=== PATIENT | female | born 1950 | race Caucasian/White ===

== ENCOUNTER 2023-05-07 12:09 | Emergency (ER) | payer OTHER, SELFPAY ==
[2023-05-07 12:12] VITALS: BP 140/69; PULSE 73; RESP 18; TEMP 36.5; O2SAT 99; BMI 26.9
--- NOTE | 2023-05-07 12:22 | DI.RAD.S_ITS ---
PROCEDURE: XR CHEST 1V INDICATIONS: chest pain TECHNIQUE: One view of the chest was acquired. COMPARISON: None. FINDINGS: Surgical changes and devices: None. Lungs and pleura: Lungs are clear. No pleural effusions or pneumothorax. Mediastinum: Mediastinal contours appear normal. Heart size is normal. Bones and chest wall: No suspicious bony lesions. Dextrocurvature of the spine. Overlying soft tissues appear unremarkable. IMPRESSION: No acute cardiopulmonary process. Dictated by: Livan uGtierrez M.D. on 05/07/2023 at 13:08 Approved by: Livan Gutierrez M.D. on 05/07/2023 at 13:08
[2023-05-07 12:32] LABS: Add Manual Diff / Slide Review NO; Basophils Absolute Auto 100 /uL (0-100); Basophils Percent Auto 1.1 % (0-2); Eosinophils Absolute Auto 200 /uL (0-450); Hematocrit 41.4 % (36-46); Hemoglobin 13.8 g/dL (12.0-16.0); Lymphocytes Absolute Auto 1800 /uL (1100-4500); Lymphocytes Percent Auto 32.6 % (25-40); Mean Corpuscular HGB Conc 33.2 % (30-36); Mean Corpuscular Hemoglobin 30.3 PG (26-34); Mean Corpuscular Volume 91.3 fL (80-100); Monocytes Absolute Auto 600 /uL (0-900); Monocytes Percent Auto 10.3 % (3-14); Neutrophils Absolute Auto 2800 /uL (1500-7000); Platelet Count 225 X10^3/uL (150-400); Red Blood Cell Count 4.54 X10^6/uL (4.0-5.2); Red Cell Distribution Width 13.5 % (11.6-14.8); White Blood Cell Count 5.4 X10^3/uL (4.5-11.0)
[2023-05-07 12:40] LABS: Prothrombin Time 11.2 SECONDS (10.1-12.7)
--- NOTE | 2023-05-07 12:40 | ED_ITS ---
HPI - Arrhythmia/Palpitations General Chief Complaint: Arrhythmia/Palpitations Stated Complaint: accelerated heart rate Time Seen by Provider: 05/07/23 12:21 History of Present Illness HPI narrative: 72-year-old female former smoker without chronic medical history presents with a chief complaint of an episode of elevated heart rate last night as high as 150. She states that she has been having issues with episodes of palpitations off and on for least the past year and has had a Holter monitor without any significant findings. She denies any new medications or dietary change. She denies any current symptoms. She is had no fever or chills and denies any nausea or vomiting. She states that she was out for her normal walk last night and noticed that she was feeling palpitations and had heart rate of 150. It resolved not too long afterwards and she is here for evaluation. She denies any trauma or injury, no calf or leg pain or swelling and is asymptomatic as we speak Related Data Allergies Allergy/AdvReac Type Severity Reaction Status Date / Time No Known Drug Allergies Allergy Verified 05/07/23 12:15 Review of Systems Review of Systems Narrative: GENERAL: Denies chills, fatigue, malaise, fever, sweats. HEENT: Denies sinus pain, ear pain, sore throat, difficulty swallowing, dizziness. RESPIRATORY: Denies dyspnea, cough, wheezing, hemoptysis, sputum. CARDIOVASCULAR: See HPI GASTROINTESTINAL: Denies nausea, vomiting, abdominal pain, diarrhea, constipation, melena. : Denies dysuria, frequency, incontinence, hematuria, urinary retention. MUSCULOSKELETAL: denies weakness, joint pain, or bony pain SKIN: Denies rash, skin lesions, or other NEUROLOGIC: Denies weakness, headache, numbness, change in speech, confusion, seizures, incoordination. PSYCHIATRIC: No concerning psychosocial issues. 12 point review of systems is negative except for those stated above Patient History Social History Smoking Status: Former smoker Smoking Status: Former smoker alcohol intake frequency: 0-2 drinks per day Substance Use Type: does not use Exam Narrative Exam Narrative: GENERAL: [72] year old patient appears stated age. Well-developed patient, in mild distress. HEAD: Atraumatic. Normocephalic. EYES: Pupils equal round and reactive. Extraocular motions intact. No scleral icterus. No injection or drainage. ENT: Nose without bleeding, purulent drainage. Throat without erythema, tonsillar hypertrophy or exudate. Airway patent. NECK: Trachea midline. Non tender CARDIOVASCULAR: Regular rate and rhythm without murmurs, gallops, or rubs. RESPIRATORY: Clear to auscultation. Breath sounds equal bilaterally. No wheezes, rales, or rhonchi. GASTROINTESTINAL: Abdomen soft, non-tender, nondistended. EXTREMITIES: No edema or joint tenderness. BACK: Nontender without deformity or crepitance. No flank tenderness. NEURO: AOx3. SKIN: No rash or erythema of visible areas Initial Vital Signs Initial Vital Signs: Vital Signs Temperature 97.7 F 05/07/23 12:12 Pulse Rate 73 05/07/23 12:12 Respiratory Rate 18 05/07/23 12:12 Blood Pressure 140/69 05/07/23 12:12 Pulse Oximetry 99 05/07/23 12:12 Oxygen Delivery Method Room Air 05/07/23 12:12 Course Orders Ordered: ED Orders 05/07/23 12:20 Complete Blood Count AUTO DIFF Stat Comprehensive Metabolic Panel Stat Lipase Stat Magnesium Stat PTT Partial Thromboplastin Sandeep Stat Prothrombin Time INR Stat Troponin & CK Cardiac Panel Stat 05/07/23 12:22 XR chest 1V Stat EKG-12 Lead Stat Vital Signs Vital signs: Vital Signs - 8 hr 05/07/23 12:12 Temperature 97.7 F Pulse Rate 73 Respiratory Rate 18 Blood Pressure 140/69 Pulse Oximetry 99 Oxygen Delivery Method Room Air MDM - Arrhythmia/Palpitations Lab Data 05/07/23 12:20 05/07/23 12:20 Labs: Lab Results 05/07/23 05/07/23 05/07/23 Range/Units 12:20 12:20 12:20 WBC 5.4 (4.5-11.0) X10^3/uL RBC 4.54 (4.0-5.2) X10^6/uL Hgb 13.8 (12.0-16.0) g/dL Hct 41.4 (36-46) % MCV 91.3 (80-100) fL MCH 30.3 (26-34) PG MCHC 33.2 (30-36) % RDW 13.5 (11.6-14.8) % Plt Count 225 (150-400) X10^3/uL Neut % (Auto) 52.0 (50-75) % Lymph % (Auto) 32.6 (25-40) % [place] % (Auto) 10.3 (3-14) % Eos % (Auto) 4.0 (2-4) % Baso % (Auto) 1.1 (0-2) % Neut # (Auto) 2800 (5655-5977) /uL Lymph # (Auto) 1800 (4432-1111) /uL [place] # (Auto) 600 (0-900) /uL Eos # (Auto) 200 (0-450) /uL Baso # (Auto) 100 (0-100) /uL PT 11.2 (10.1-12.7) SECONDS INR 1.0 (0.9-1.3) APTT 33 (26-36) SECONDS D-Dimer (<500) ng/ml Sodium 140 (137-145) mmol/L Potassium 4.6 (3.4-5.1) mmol/L Chloride 107 (98-107) mmol/L Carbon Dioxide 28 (22-32) mmol/L BUN 20 H (7-17) mg/dL Creatinine 0.91 (0.52-1.04) mg/dL Estimated GFR > 60 (>60) mL/min BUN/Creatinine Ratio 22.0 (6-22) Glucose 117 H (80-110) mg/dL Calcium 8.9 (8.4-10.2) mg/dL Magnesium 2.1 (1.6-2.3) mg/dL Total Bilirubin 0.8 (0.2-1.3) mg/dL AST 29 (14-36) IU/L ALT 24 (<35) IU/L Alkaline Phosphatase 68 (38-126) U/L Total Creatine Kinase 82 (30-135) U/L Troponin I < 0.012 (0.01-0.034) ng/mL Total Protein 7.2 (6.3-8.2) g/dL Albumin 4.3 (3.5-5.0) g/dL Globulin 2.9 (1.7-4.1) g/dL Albumin/Globulin Ratio 1.5 (1.0-2.8) Lipase 664 H (23-300) U/L 05/07/23 Range/Units 12:40 WBC (4.5-11.0) X10^3/uL RBC (4.0-5.2) X10^6/uL Hgb (12.0-16.0) g/dL Hct (36-46) % MCV (80-100) fL MCH (26-34) PG MCHC (30-36) % RDW (11.6-14.8) % Plt Count (150-400) X10^3/uL Neut % (Auto) (50-75) % Lymph % (Auto) (25-40) % [place] % (Auto) (3-14) % Eos % (Auto) (2-4) % Baso % (Auto) (0-2) % Neut # (Auto) (0167-0636) /uL Lymph # (Auto) (5983-0497) /uL [place] # (Auto) (0-900) /uL Eos # (Auto) (0-450) /uL Baso # (Auto) (0-100) /uL PT (10.1-12.7) SECONDS INR (0.9-1.3) APTT (26-36) SECONDS D-Dimer 490 (<500) ng/ml Sodium (137-145) mmol/L Potassium (3.4-5.1) mmol/L Chloride (98-107) mmol/L Carbon Dioxide (22-32) mmol/L BUN (7-17) mg/dL Creatinine (0.52-1.04) mg/dL Estimated GFR (>60) mL/min BUN/Creatinine Ratio (6-22) Glucose (80-110) mg/dL Calcium (8.4-10.2) mg/dL Magnesium (1.6-2.3) mg/dL Total Bilirubin (0.2-1.3) mg/dL AST (14-36) IU/L ALT (<35) IU/L Alkaline Phosphatase (38-126) U/L Total Creatine Kinase (30-135) U/L Troponin I (0.01-0.034) ng/mL Total Protein (6.3-8.2) g/dL Albumin (3.5-5.0) g/dL Globulin (1.7-4.1) g/dL Albumin/Globulin Ratio (1.0-2.8) Lipase (23-300) U/L ECG Data Interpretation: [1223] EKG is normal sinus rhythm rate [70 ] and free of any signs of ischemia or ectopy. No ST segmental elevation or depression. No T wave inversions MDM Narrative Medical decision making narrative: [72] year old patient presents with palpitations last night Multiple etiologies for patient's symptoms considered including, but not limited to: [Electrolyte abnormality versus SVT versus AFib versus pulmonary embolism versus other] Prior Charts reviewed in our EMR Primary Historian: patient Labs reviewed and interpreted by myself: No signs of infection or anemia, electrolyte within normal limit, D-dimer below age corrected cutoff, Imaging reviewed: Patient's history and physical exam is very reassuring. She is extremely active and never has any symptoms with exertion, no exercise intolerance, labs and EKG reassuring. No symptoms now Patient's symptoms improved over duration of stay with above-stated therapies. Findings and discharge diagnosis discussed with patient/family followed by verbalization of understanding Return precautions discussed with patient/family whom verbalize understanding of diagnosis and plan Discharge Plan Departure Patient Disposition: Home Clinical Impression: Palpitations Instructions: DI for Arrhythmias Activity Restrictions/Additional Instructions: *You have been diagnosed with [palpitations, resolved. As we discussed your history and physical exam are reassuring as are labs, EKG there is no evidence o f a blood clot or heart attack] *What to do: *Please continue to take your regular medications as directed. [ ] New medication prescriptions sent to your pharmacy: [ ] [ ] New medication written as a paper prescription [ ] No new medications given *Please follow up with your primary care provider in 2-3 days, call for an appointment. Let them know you were seen in the Emergency Department and that we ask that you be seen in follow up. We will electronically transmit a record of today's note if your PCP is in our system *If you do not have a primary care provider please contact the [facility] Resource line at [phone]. They will ask some questions about your medical history and help get you set up with a doctor in the community. *Return to Emergency Department if you should have any new, worsening or concerning symptoms, such as [fever greater than 101 F, shaking chills, worsening pain, persistent vomiting or other bothersome symptoms] Stand Alone Forms: Patient Portal/API
[2023-05-07 12:43] LABS: PTT Partial Thromboplastin Tim 33 SECONDS (26-36)
[2023-05-07 12:44] LABS: Alanine Aminotransferase 24 IU/L (<35); Albumin 4.3 g/dL (3.5-5.0); Albumin Globulin Ratio 1.5 (1.0-2.8); Alkaline Phosphatase 68 U/L (38-126); Aspartate Aminotransferase 29 IU/L (14-36); Bilirubin Total 0.8 mg/dL (0.2-1.3); Blood Urea Nitrogen 20 mg/dL (7-17); Calcium 8.9 mg/dL (8.4-10.2); Carbon Dioxide 28 mmol/L (22-32); Chloride 107 mmol/L (98-107); Creatine Kinase 82 U/L (30-135); Estimated Glomerular Filt Rate > 60 mL/min (>60); Globulin 2.9 g/dL (1.7-4.1); Glucose 117 mg/dL (80-110); HEMOLYSIS < 15 (0-50); Lipase 664 U/L (23-300); Magnesium 2.1 mg/dL (1.6-2.3); Potassium 4.6 mmol/L (3.4-5.1); Sodium 140 mmol/L (137-145); Total Protein 7.2 g/dL (6.3-8.2)
[2023-05-07 12:50] LABS: D Dimer 490 ng/ml (<500)
[2023-05-07 12:56] LABS: Troponin I < 0.012 ng/mL (0.01-0.034)
[2023-05-07 13:13] VITALS: BP 126/61; PULSE 69; RESP 20; O2SAT 99
== END 2023-05-07 13:10 | disposition home or self-care (01) ==
PROVIDERS: Emergency Provider Emergency Medicine
DX: R00.2 Palpitations (principal); R07.9 Chest pain, unspecified
CPT/HCPCS: 36415; 71045; 80053; 82550; 83690; 83735; 84484; 85025; 85379; 85610; 85730; 93005; 99283; 99284

== ENCOUNTER 2024-06-16 20:11 | Emergency (ER) | payer OTHER, SELFPAY ==
[2024-06-16 20:17] VITALS: BP 160/77; PULSE 77; RESP 17; TEMP 36.6; O2SAT 100; BMI 27.3
[2024-06-16 21:00] VITALS: PULSE 79; O2SAT 99
[2024-06-16 21:02] VITALS: BP 148/68; PULSE 76; O2SAT 98
--- NOTE | 2024-06-16 21:06 | EKG_ITS ---
[place] [address] [place] [id number] Test Date: 2024-06-16 Pat Name: Monica Squires Department: [facility] Room: Gender: Female Principal Strategist: CALI : 1950 Requested By: Order Number: [id number] Reading MD: Colton Torrez MD Measurements Intervals [place] Rate: 76 P: 60 MO: 186 QRS: -33 QRSD: 84 T: 39 QT: 372 QTc: 418 Interpretive Statements Normal sinus rhythm Left axis deviation Electronically Signed On 06-17-2024 8:36:00 PDT by Colton Torrez MD
--- NOTE | 2024-06-16 21:07 | PC.NURSE ---
Patient here for episode of syncope while making dinner she felt dizzy prior to passing out, patient has never passed out before. Patient takes no daily medications. Recently had an echocardiogram for palpitations shes been experiencing.
[2024-06-16 21:30] VITALS: PULSE 78; RESP 19; O2SAT 99
[2024-06-16 21:35] VITALS: BP 118/67; PULSE 75; RESP 21; O2SAT 99
--- NOTE | 2024-06-16 21:40 | PC.NURSE ---
This RN went into room to start an IV and patient was confused about why she would need an IV, this RN educated her on the possible need for IV medications or repeat labs, patient still refused
--- NOTE | 2024-06-16 21:46 | ED_ITS ---
HPI - General Adult General Chief complaint: Syncope Stated complaint: passed out, injured hip Time Seen by Provider: 06/16/24 20:34 Source: patient Mode of arrival: Ambulatory History of Present Illness HPI narrative: Patient is a 73-year-old female who is here for evaluation of a syncopal episode that she had earlier today. She has had episodes in the past where her heart rate has gone fast. She more Holter monitor several years ago without a specific diagnosis. She reports earlier today that she was standing in the kitchen. States she felt like her heart was beating fast. She would become dizzy and then passed out. She did land on her left hip with discomfort but she has been able to ambulate since then. The time of my evaluation she states she was feeling at baseline. No fevers. No chest pain. No numbness or tingling in her upper and lower extremities. Related Data Allergies Allergy/AdvReac Type Severity Reaction Status Date / Time No Known Drug Allergies Allergy Verified 06/16/24 20:17 Review of Systems Review of Systems ROS Unobtainable: All systems reviewed & are unremarkable except as noted in HPI and below Patient History Social History Smoking Status: Former smoker Smoking Status: Former smoker alcohol intake frequency: 0-2 drinks per day Substance Use Type: does not use Exam Initial Vital Signs Initial Vital Signs: Vital Signs Temperature 97.8 F 06/16/24 20:17 Pulse Rate 77 06/16/24 20:17 Respiratory Rate 17 06/16/24 20:17 Blood Pressure 160/77 H 06/16/24 20:17 Pulse Oximetry 100 06/16/24 20:17 Oxygen Delivery Method Room Air 06/16/24 20:17 Const General: cooperative, comfortable and No ill appearing [facility] Head: normal to inspection and normocephalic Resp Effort & Inspection: normal respiratory effort Auscultation: clear to auscultation bilaterally Cardio Rate: regular rate Rhythm: regular rhythm Skin General: no rashes or lesions noted Neuro General: patient alert, patient awake and moves all extremities Extrem General: capillary refill normal Scores GCS [place] coma scale eye opening: Spontaneous [place] coma scale verbal response: Orientated [place] coma scale motor response: Obey commands [place] coma scale total score: 15 Course Orders Ordered: ED Orders 06/16/24 20:35 EKG-12 Lead Stat 06/16/24 21:36 Complete Blood Count AUTO DIFF Stat Comprehensive Metabolic Panel Stat Lipase Stat Vital Signs Vital signs: Vital Signs - 8 hr 06/16/24 20:17 06/16/24 21:00 06/16/24 21:02 Temperature 97.8 F Pulse Rate 77 79 Respiratory Rate 17 Blood Pressure 160/77 H 148/68 H Pulse Oximetry 100 99 Oxygen Delivery Method Room Air 06/16/24 21:02 06/16/24 21:30 06/16/24 21:35 Temperature Pulse Rate 76 78 75 Respiratory Rate 19 21 Blood Pressure Pulse Oximetry 98 99 99 Oxygen Delivery Method Room Air 06/16/24 21:35 06/16/24 22:00 06/16/24 22:00 Temperature Pulse Rate 71 Respiratory Rate 20 Blood Pressure 118/67 124/63 Pulse Oximetry 100 Oxygen Delivery Method Medical Decision Making Lab Data Lab results reviewed: Yes I reviewed the patient's lab results. 06/16/24 21:36 06/16/24 21:36 Labs: Lab Results 06/16/24 Range/Units 21:36 WBC 6.9 (4.5-11.0) X10^3/uL RBC 4.58 (4.0-5.2) X10^6/uL Hgb 13.9 (12.0-16.0) g/dL Hct 41.4 (36-46) % MCV 90.3 (80-100) fL MCH 30.3 (26-34) PG MCHC 33.5 (30-36) % RDW 13.3 (11.6-14.8) % Plt Count 231 (150-400) X10^3/uL Neut % (Auto) 61.8 (50-75) % Lymph % (Auto) 26.5 (25-40) % [place] % (Auto) 7.9 (3-14) % Eos % (Auto) 2.8 (2-4) % Baso % (Auto) 1.0 (0-2) % Neut # (Auto) 4200 (2683-4419) /uL Lymph # (Auto) 1800 (5351-7159) /uL [place] # (Auto) 500 (0-900) /uL Eos # (Auto) 200 (0-450) /uL Baso # (Auto) 100 (0-100) /uL Sodium 142 (137-145) mmol/L Potassium 4.0 (3.4-5.1) mmol/L Chloride 108 H (98-107) mmol/L Carbon Dioxide 25 (22-32) mmol/L BUN 15 (7-17) mg/dL Creatinine 0.89 (0.52-1.04) mg/dL Estimated GFR > 60 (>60) mL/min BUN/Creatinine Ratio 16.9 (6-22) Glucose 123 H (80-110) mg/dL Calcium 9.2 (8.4-10.2) mg/dL Total Bilirubin 0.6 (0.2-1.3) mg/dL AST 27 (14-36) IU/L ALT 21 (<35) IU/L Alkaline Phosphatase 79 (38-126) U/L Total Protein 6.9 (6.3-8.2) g/dL Albumin 4.1 (3.5-5.0) g/dL Globulin 2.8 (1.7-4.1) g/dL Albumin/Globulin Ratio 1.5 (1.0-2.8) Lipase 129 (23-300) U/L ECG Data Interpretation: Sinus rhythm Ventricular rate is 76 Normal axis Normal QRS Normal QTC No ST T wave changes MDM Narrative Medical decision making narrative: Patient was currently asymptomatic. Sinus rhythm on EKG. Is low risk per the [place] syncope rule. She has had issues with palpitations in the past. The new issue today is that she was passed out. Did advise her that she should contact her primary doctor for follow-up to discuss the indications for a Holter monitor and referral to see Cardiology. She was given return precautions. She expressed understanding and agreement. Discharge Plan Departure Patient Disposition: Home Clinical Impression: Palpitations, Syncope Instructions: DI for Syncope in Adults (Fainting) Activity Restrictions/Additional Instructions: Fortunately your workup here in the emergency department is very reassuring. Recommend that you contact your primary doctor to discuss the indications for a repeat Holter monitor or referral to see Cardiology. Return to the emergency department for new or worsening symptoms. Stand Alone Forms: Patient Portal/API
[2024-06-16 21:47] LABS: Add Manual Diff / Slide Review NO; Basophils Absolute Auto 100 /uL (0-100); Eosinophils Absolute Auto 200 /uL (0-450); Eosinophils Percent Auto 2.8 % (2-4); Hematocrit 41.4 % (36-46); Hemoglobin 13.9 g/dL (12.0-16.0); Lymphocytes Absolute Auto 1800 /uL (1100-4500); Lymphocytes Percent Auto 26.5 % (25-40); Mean Corpuscular HGB Conc 33.5 % (30-36); Mean Corpuscular Hemoglobin 30.3 PG (26-34); Mean Corpuscular Volume 90.3 fL (80-100); Monocytes Absolute Auto 500 /uL (0-900); Monocytes Percent Auto 7.9 % (3-14); Neutrophils Absolute Auto 4200 /uL (1500-7000); Neutrophils Percent Auto 61.8 % (50-75); Platelet Count 231 X10^3/uL (150-400); Red Blood Cell Count 4.58 X10^6/uL (4.0-5.2); Red Cell Distribution Width 13.3 % (11.6-14.8); White Blood Cell Count 6.9 X10^3/uL (4.5-11.0)
[2024-06-16 21:59] LABS: Alanine Aminotransferase 21 IU/L (<35); Albumin 4.1 g/dL (3.5-5.0); Albumin Globulin Ratio 1.5 (1.0-2.8); Alkaline Phosphatase 79 U/L (38-126); Aspartate Aminotransferase 27 IU/L (14-36); BUN Creatinine Ratio 16.9 (6-22); Bilirubin Total 0.6 mg/dL (0.2-1.3); Blood Urea Nitrogen 15 mg/dL (7-17); Calcium 9.2 mg/dL (8.4-10.2); Carbon Dioxide 25 mmol/L (22-32); Chloride 108 mmol/L (98-107); Estimated Glomerular Filt Rate > 60 mL/min (>60); Globulin 2.8 g/dL (1.7-4.1); Glucose 123 mg/dL (80-110); HEMOLYSIS 16 (0-50); Lipase 129 U/L (23-300); Sodium 142 mmol/L (137-145); Total Protein 6.9 g/dL (6.3-8.2)
[2024-06-16 22:00] VITALS: BP 124/63; PULSE 71; RESP 20; O2SAT 100
== END 2024-06-16 22:14 | disposition home or self-care (01) ==
PROVIDERS: Emergency Provider Emergency Medicine
DX: R00.2 Palpitations (principal); R55 Syncope and collapse
CPT/HCPCS: 80053; 83690; 85025; 93005; 99283; 99284

== ENCOUNTER 2024-11-03 15:11 | Emergency (ER) | payer OTHER, SELFPAY ==
[2024-11-03] VITALS (10 sets, daily range): BP systolic 101–118; BP diastolic 52–78; PULSE 67–119; RESP 16–24; TEMP 36.6; O2SAT 97–100
--- NOTE | 2024-11-03 15:15 | DI.RAD.S_ITS ---
PROCEDURE: XR CHEST 1V INDICATIONS: chest pain TECHNIQUE: One view of the chest was acquired. COMPARISON: [facility], CR, XR CHEST 1V, 05/07/2023, 12:28. FINDINGS: Surgical changes and devices: None. Lungs and pleura: Lungs are clear. No pleural effusions or pneumothorax. Mediastinum: Mediastinal contours appear normal. Heart size is normal. Bones and chest wall: No suspicious bony lesions. Age-appropriate bony degenerative changes are seen. Overlying soft tissues appear unremarkable. IMPRESSION: Unremarkable portable chest for age. Dictated by: Jaime Eubanks M.D. on 11/03/2024 at 14:43 Approved by: Jaime Eubanks M.D. on 11/03/2024 at 14:44
--- NOTE | 2024-11-03 15:20 | EKG_ITS ---
[address] [address] Test Date: 2024-11-03 Pat Name: Monica Squires Department: Room: Gender: Female Community Education Coordinator: IDA : 1950 Requested By: Order Number: [id number] Reading MD: Colton Torrez MD Measurements Intervals [place] Rate: 100 P: [place]: QRS: -59 QRSD: 106 T: 69 QT: 344 QTc: 443 Interpretive Statements Atrial fibrillation with a competing junctional pacemaker Left anterior fascicular block Minimal voltage criteria for LVH, may be normal variant ( Luciano product ) Electronically Signed On 11-04-2024 12:58:43 PST by Colton Torrez MD
[2024-11-03 15:35] LABS: Add Manual Diff / Slide Review NO; Basophils Absolute Auto 100 /uL (0-100); Eosinophils Absolute Auto 100 /uL (0-450); Eosinophils Percent Auto 1.9 % (2-4); Hematocrit 45.6 % (36-46); Lymphocytes Absolute Auto 1900 /uL (1100-4500); Lymphocytes Percent Auto 24.7 % (25-40); Mean Corpuscular HGB Conc 32.9 % (30-36); Mean Corpuscular Hemoglobin 29.6 PG (26-34); Mean Corpuscular Volume 90.1 fL (80-100); Monocytes Absolute Auto 700 /uL (0-900); Neutrophils Absolute Auto 4900 /uL (1500-7000); Neutrophils Percent Auto 63.4 % (50-75); Platelet Count 265 X10^3/uL (150-400); Red Blood Cell Count 5.06 X10^6/uL (4.0-5.2); Red Cell Distribution Width 13.6 % (11.6-14.8); White Blood Cell Count 7.7 X10^3/uL (4.5-11.0)
[2024-11-03 15:44] LABS: INR 1.3 (0.9-1.3); Prothrombin Time 14.3 SECONDS (9.4-12.5)
[2024-11-03 15:47] LABS: PTT Partial Thromboplastin Tim 48 SECONDS (25.1-36.5)
[2024-11-03 15:48] LABS: Alanine Aminotransferase 21 IU/L (<35); Albumin 4.3 g/dL (3.5-5.0); Albumin Globulin Ratio 1.5 (1.0-2.8); Alkaline Phosphatase 74 U/L (38-126); Aspartate Aminotransferase 30 IU/L (14-36); BUN Creatinine Ratio 18.1 (6-22); Bilirubin Total 0.8 mg/dL (0.2-1.3); Blood Urea Nitrogen 19 mg/dL (7-17); Calcium 8.7 mg/dL (8.4-10.2); Carbon Dioxide 27 mmol/L (22-32); Chloride 108 mmol/L (98-107); Creatine Kinase 72 U/L (30-135); Estimated Glomerular Filt Rate 56 mL/min (>60); Globulin 2.9 g/dL (1.7-4.1); Glucose 108 mg/dL (80-110); HEMOLYSIS < 15 (0-50); Lipase 170 U/L (23-300); Magnesium 2.3 mg/dL (1.6-2.3); Potassium 4.6 mmol/L (3.4-5.1); Sodium 141 mmol/L (137-145); Total Protein 7.2 g/dL (6.3-8.2)
[2024-11-03 16:00] LABS: NT-proBNP (BNP-Adult 18+) 1250 pg/mL (<125); Troponin I < 0.012 ng/mL (0.01-0.034)
--- NOTE | 2024-11-03 16:25 | ED_ITS ---
HPI - Arrhythmia/Palpitations General Chief Complaint: Arrhythmia/Palpitations Stated Complaint: AFIB, sent by pcp for cardioversion Time Seen by Provider: 11/03/24 16:17 Source: patient Mode of arrival: Family Vehicle History of Present Illness HPI narrative: Patient is a 73-year-old female who has a history of atrial fibrillation on Xarelto flecainide and metoprolol presenting today with a AFib. Her heart rate monitor reports that she has been in AFib since just after midnight. She reports increased urinations and fluttering in her chest. She has had this before. She has never been cardioverted. She was sent in for cardioversion. She was relatively asymptomatic. She has not had anything to eat or drink today. Related Data Allergies Allergy/AdvReac Type Severity Reaction Status Date / Time No Known Drug Allergies Allergy Verified 06/16/24 20:17 Patient History Social History Smoking Status: Former smoker Smoking Status: Former smoker tobacco type: cigarettes alcohol intake frequency: 0-2 drinks per day Exam Initial Vital Signs Initial Vital Signs: Vital Signs Pulse Rate 106 H 11/03/24 15:22 Pulse Oximetry 99 11/03/24 15:22 GENERAL: Alert pleasant well-appearing 73-year-old and in no acute distress. HEENT: Head atraumatic,EOMI, pupils reactive, face symmetric, moist mucous membranes CARDIOVASCULAR: Irregularly irregular no RESPIRATORY: Breath sounds equal bilaterally, no wheezes rales or rhonchi. ABDOMEN: Soft, nontender. Normoactive bowel sounds all 4 quadrants. No guarding or rebound. EXTREMITIES: Normal range of motion, no clubbing or edema. Neurovascularly intact NEUROLOGICAL: Alert and oriented x4.Normal gait and speech. Cranial nerves II through XII grossly intact. SKIN: Warm, dry, no laceration, no petechiae, no rashes or lesions. Procedures Cardioversion Consent Signed: Yes Stability: Stable Number of attempts (shocks): 1 Joules used: 120 Cardiac rhythm post-cardioversion: NSR Procedural Sedation Consent signed: Yes Time out performed: Yes Indication: cardioversion Preparation: site monitor applied, pulse oximeter, capnometry used, supplemental O2 applied, suction/airway equipment at bedside and IV secured IV Propofol dose (mg): 50 Intraservice time/total sedation time (min): 13 ED Sedation Level: Moderate (Concious) Patient Tolerated Procedure: Well and No complications Complications: none Course Orders Ordered: ED Orders 11/03/24 15:15 XR chest 1V Stat EKG-12 Lead Stat 11/03/24 15:28 Complete Blood Count AUTO DIFF Stat Comprehensive Metabolic Panel Stat Lipase Stat Magnesium Stat NT-proBNP (BNP-Adult 18+) Stat PTT Partial Thromboplastin Sandeep Stat Prothrombin Time INR Stat Troponin & CK Cardiac Panel Stat Discontinued Medications Aspirin (Aspirin 81 Mg Chew Tab) 324 mg PO NOW ONE Stop: 11/03/24 15:16 Last Admin: 11/03/24 15:56 Dose: Not Given Documented By: Propofol (Propofol 200 Mg/20 Ml Vial) 50 mg IV NOW ONE Stop: 11/03/24 16:44 Last Admin: 11/03/24 16:59 Dose: 50 mg Documented By: Vital Signs Vital signs: Vital Signs - 8 hr 11/03/24 15:22 11/03/24 15:27 11/03/24 15:27 Temperature Pulse Rate 106 H 111 H Respiratory Rate 24 Blood Pressure 116/78 Pulse Oximetry 99 98 Oxygen Delivery Method 11/03/24 15:30 11/03/24 15:30 11/03/24 15:33 Temperature 97.8 F Pulse Rate 117 H 105 H Respiratory Rate 18 16 Blood Pressure 113/68 116/78 Pulse Oximetry 100 99 Oxygen Delivery Method Room Air Room Air 11/03/24 16:00 11/03/24 16:00 11/03/24 16:30 Temperature Pulse Rate 110 H 99 H Respiratory Rate 21 20 Blood Pressure 104/59 L Pulse Oximetry 97 99 Oxygen Delivery Method 11/03/24 16:30 11/03/24 16:58 11/03/24 16:58 Temperature Pulse Rate 119 H 67 Respiratory Rate 16 16 18 Blood Pressure 101/62 118/58 L 111/52 L Pulse Oximetry 98 100 97 Oxygen Delivery Method Room Air 11/03/24 17:05 Temperature Pulse Rate 67 Respiratory Rate 16 Blood Pressure 107/57 L Pulse Oximetry 98 Oxygen Delivery Method MDM - Arrhythmia/Palpitations Lab Data 11/03/24 15:28 11/03/24 15:28 Labs: Lab Results 11/03/24 Range/Units 15:28 WBC 7.7 (4.5-11.0) X10^3/uL RBC 5.06 (4.0-5.2) X10^6/uL Hgb 15.0 (12.0-16.0) g/dL Hct 45.6 (36-46) % MCV 90.1 (80-100) fL MCH 29.6 (26-34) PG MCHC 32.9 (30-36) % RDW 13.6 (11.6-14.8) % Plt Count 265 (150-400) X10^3/uL Neut % (Auto) 63.4 (50-75) % Lymph % (Auto) 24.7 L (25-40) % Barber % (Auto) 9.0 (3-14) % Eos % (Auto) 1.9 L (2-4) % Baso % (Auto) 1.0 (0-2) % Neut # (Auto) 4900 (0055-1483) /uL Lymph # (Auto) 1900 (2599-0049) /uL Barber # (Auto) 700 (0-900) /uL Eos # (Auto) 100 (0-450) /uL Baso # (Auto) 100 (0-100) /uL PT 14.3 H (9.4-12.5) SECONDS INR 1.3 (0.9-1.3) APTT 48 H (25.1-36.5) SECONDS Sodium 141 (137-145) mmol/L Potassium 4.6 (3.4-5.1) mmol/L Chloride 108 H (98-107) mmol/L Carbon Dioxide 27 (22-32) mmol/L BUN 19 H (7-17) mg/dL Creatinine 1.05 H (0.52-1.04) mg/dL Estimated GFR 56 L (>60) mL/min BUN/Creatinine Ratio 18.1 (6-22) Glucose 108 (80-110) mg/dL Calcium 8.7 (8.4-10.2) mg/dL Magnesium 2.3 (1.6-2.3) mg/dL Total Bilirubin 0.8 (0.2-1.3) mg/dL AST 30 (14-36) IU/L ALT 21 (<35) IU/L Alkaline Phosphatase 74 (38-126) U/L Total Creatine Kinase 72 (30-135) U/L Troponin I < 0.012 (0.01-0.034) ng/mL NT-Pro-B Natriuret Pep 1250 H (<125) pg/mL Total Protein 7.2 (6.3-8.2) g/dL Albumin 4.3 (3.5-5.0) g/dL Globulin 2.9 (1.7-4.1) g/dL Albumin/Globulin Ratio 1.5 (1.0-2.8) Lipase 170 (23-300) U/L Point of Care Testing Test Results Negative Imaging Data Chest x-ray: Radiologist's Impresson: PROCEDURE: XR CHEST 1V INDICATIONS: chest pain TECHNIQUE: One view of the chest was acquired. COMPARISON: [facility], CR, XR CHEST 1V, 05/07/2023, 12:28. FINDINGS: Surgical changes and devices: None. Lungs and pleura: Lungs are clear. No pleural effusions or pneumothorax. Mediastinum: Mediastinal contours appear normal. Heart size is normal. Bones and chest wall: No suspicious bony lesions. Age-appropriate bony degenerative changes are seen. Overlying soft tissues appear unremarkable. IMPRESSION: Unremarkable portable chest for age. Dictated by: Jaime Eubanks M.D. on 11/03/2024 at 14:43 ECG Data Attestation: I personally reviewed and interpreted this ECG as follows: Prior ECG tracings: available for review Interpretation: Atrial fibrillation rate 100 no acute ischemia Repeat EKGs normal sinus rhythm rate 66 DE interval 214 QRS 92 QTC 425 MDM Narrative Medical decision making narrative: Patient is 73-year-old female history of atrial fibrillation anticoagulated on Xarelto presenting today with atrial fibrillation. She was minimally symptomatic she is hemodynamically stable. Blood work has been reviewed she has no electrolyte abnormality no anemia Creatinine slightly elevated 1.05, but not clinically significant BNP slightly elevated at 1250 but no evidence of congestive heart failure, troponin is negative Chest x-ray does not show any cardiopulmonary process She was easily cardioverted at 120 J no complications Feeling much better awake alert appropriate for discharge. Recommend she continue all for medications and Her crosscutter rolled glass Discharge Plan Departure Patient Disposition: Home Clinical Impression: Atrial fibrillation Instructions: DI for Atrial Fibrillation Activity Restrictions/Additional Instructions: *You have been diagnosed with atrial fibrillation *What to do: At this time please call your crosscutter rolled glass regards to further instructions *Continue to take medications as directed *Follow up with your primary care provider in 2-3 days or call [phone] *Return to ER if you should have increasing chest pain palpitations or any new, worsening or concerning symptoms Stand Alone Forms: Patient Portal/API/Survey
[2024-11-03] MEDS: propofoL 200 MG/20 ML VIAL 50 MG IV (16:59)
--- NOTE | 2024-11-03 17:06 | EKG_ITS ---
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
== END 2024-11-03 17:47 | disposition home or self-care (01) ==
PROVIDERS: Emergency Provider Emergency Medicine
DX: I48.91 Unspecified atrial fibrillation (principal); Z79.01 Long term (current) use of anticoagulants; R07.9 Chest pain, unspecified
CPT/HCPCS: 36415; 71045; 80053; 82550; 83690; 83735; 83880; 84484; 85025; 85610; 85730; 92960; 93005; 93010; 99152; 99285; J2704